=== PATIENT | male | born 1975 | race Caucasian/White ===

== ENCOUNTER 2017-03-03 17:09 | Emergency (ER) | payer BC ==
[~2017-03-03] VITALS: Ht 185.4 cm; Wt 111.1 kg
[2017-03-03] MEDS ORDERED: IV NORMAL SALINE 1000ML BAG 1,000 ML IV SCH (17:35)
[2017-03-03] MEDS ORDERED: FAMOTIDINE 20 MG/2 ML VIAL IVP ONE (17:45)
[2017-03-03] MEDS ORDERED: fentaNYL PF VIAL 100 MCG/2 ML VIAL IV PRN (17:45)
[2017-03-03] MEDS ORDERED: 0.9 % SODIUM CHLORIDE 10 ML DISP.SYRIN. IV PRN (17:45)
[2017-03-03] MEDS ORDERED: ONDANSETRON PF 4 MG/2 ML VIAL. IV ONE (17:45)
--- NOTE | 2017-03-03 17:56 | PHYS DOC ---
Past Medical History Past Medical History: No Pertinent History Past Surgical History: Tonsillectomy, Other Additional Past Surgical Histo: right hand fracture repair Alcohol Use: Heavy Additional Information: pt reports sometimes he drinks once per week, sometimes he drinks 2-3 times per week Drug Use: None Adult General Chief Complaint Chief Complaint: NAUSEA/VOMITING/DIARRHA HPI HPI This is is a pleasant otherwise healthy 41-year-old male who on weekends to consume anywhere from 10-12 alcoholic beverages. Yesterday he did the same today he woke up with diffuse crampy abdominal pain primarily in the epigastric region with no radiation to the back described as crampy in nature with waves a cause nausea vomiting diarrhea with 3 episodes of nausea and vomiting to count. He denies any blood in his vomit or stool denies any fevers but has had some active chills. He denies any travel outside the country, recent antibiotics, recent sick contacts, consumption of raw foods handling a poultry or reptiles. He denies any prior history of alcoholism alcohol related injuries alcohol- related complications of pancreatitis. He also denies any family history of alcoholism Review of Systems Review of Systems Constitutional: This patient is complained of chills without fevers. Eyes: Denies change in visual acuity, redness, or eye pain [] HENT: Denies nasal congestion or sore throat [] Respiratory: Denies cough or shortness of breath [] Cardiovascular: No additional information not addressed in HPI [] GI: He has had abdominal pain with profuse nausea and vomiting nonbilious nonbloody with nonbloody nonmucoid diarrhea. : Denies dysuria or hematuria [] Musculoskeletal: Denies back pain or joint pain [] Integument: Denies rash or skin lesions [] Neurologic: Denies headache, focal weakness or sensory changes [] Endocrine: Denies polyuria or polydipsia [] Current Medications Current Medications Current Medications Medications (Trade) Dose Ordered Sig/Faviola Start Time Stop Time Status Last Admin Dose Admin Famotidine (Pepcid) 20 mg 1X ONCE 03/03/17 17:45 03/03/17 17:46 DC 03/03/17 17:55 20 MG Fentanyl Citrate (Fentanyl 2ml Vial) 50 mcg PRN Q15MIN PRN 03/03/17 17:45 03/04/17 17:44 03/03/17 17:56 50 MCG Iohexol (Omnipaque 300 Mg/ml) 75 ml 1X ONCE 03/03/17 18:30 03/03/17 18:31 DC Ondansetron HCl (Zofran) 4 mg 1X ONCE 03/03/17 17:45 03/03/17 17:46 DC 03/03/17 17:55 4 MG Sodium Chloride (Normal Saline Flush) 10 ml QSHIFT PRN 03/03/17 17:45 Allergies Allergies Allergies Coded Allergies Type Severity Reaction Last Updated Verified No Known Drug Allergies 03/03/17 No Physical Exam Physical Exam Vital signs noted with hypertension without tachycardia and tachypnea or fever. Constitutional: Well developed, well nourished, a schnapps and comfortable HENT: Normocephalic, atraumatic, dry mucous membranes exudates or tonsillar hypertrophy Eyes: PERRLA, EOMI, conjunctiva normal, no discharge. [] Neck: Normal range of motion, no tenderness, supple, no stridor. [] Cardiovascular:Heart rate regular rhythm, no murmur [] Lungs & Thorax: Bilateral breath sounds clear to auscultation [] Abdomen: Patient has hyperactive bowel sounds with diffuse tenderness primarily mostly in his epigastrium without guarding rebound or organomegaly. Patient has no Scott Giordano sign Skin: Warm, dry, no erythema, no rash. [] Back: No tenderness, no CVA tenderness. [] Extremities: No tenderness, no cyanosis, no clubbing, ROM intact, no edema. [] Neurologic: Alert and oriented X 3, normal motor function, normal sensory function, no focal deficits noted. [] Psychologic: Affect normal, judgement normal, mood normal. [] Current Patient Data Vital Signs Vital Signs Date Time Temp Pulse Resp B/P (MAP) Pulse Ox O2 Delivery O2 Flow Rate FiO2 03/03/17 17:56 18 96 Room Air 03/03/17 17:25 98.5 72 166/87 (113) 98.5 Lab Values Laboratory Tests Test 03/03/17 17:47 03/03/17 18:39 White Blood Count 21.0 x10^3/uL (4.0-11.0) H Red Blood Count 5.51 x10^6/uL (4.30-5.70) Hemoglobin 15.4 g/dL (13.0-17.5) Hematocrit 47.0 % (39.0-53.0) Mean Corpuscular Volume 85 fL (79-100) Mean Corpuscular Hemoglobin 28 pg (25-35) Mean Corpuscular Hemoglobin Concent 33 g/dL (31-37) Red Cell Distribution Width 14.4 % (11.5-14.5) Platelet Count 247 x10^3/uL (140-400) Neutrophils (%) (Auto) 89 % (31-73) H Lymphocytes (%) (Auto) 6 % (24-48) L Monocytes (%) (Auto) 5 % (0-9) Eosinophils (%) (Auto) 0 % (0-3) Basophils (%) (Auto) 0 % (0-3) Neutrophils # (Auto) 18.6 x10^3uL (1.8-7.7) H Lymphocytes # (Auto) 1.3 x10^3/uL (1.0-4.8) Monocytes # (Auto) 1.1 x10^3/uL (0.0-1.1) Eosinophils # (Auto) 0.0 x10^3/uL (0.0-0.7) Basophils # (Auto) 0.0 x10^3/uL (0.0-0.2) Platelet Estimate Pending Sodium Level 142 mmol/L (136-145) Potassium Level 3.8 mmol/L (3.5-5.1) Chloride Level 105 mmol/L (98-107) Carbon Dioxide Level 26 mmol/L (21-32) Anion Gap 11 (6-14) Blood Urea Nitrogen 19 mg/dL (8-26) Creatinine 1.3 mg/dL (0.7-1.3) Estimated GFR (Cockcroft-Gault) 61.5 BUN/Creatinine Ratio 15 (6-20) Glucose Level 142 mg/dL (70-99) H Calcium Level 9.1 mg/dL (8.5-10.1) Magnesium Level 1.7 mg/dL (1.8-2.4) L Total Bilirubin 0.7 mg/dL (0.2-1.0) Aspartate Amino Transferase (AST) 24 U/L (15-37) Alanine Aminotransferase (ALT) 33 U/L (16-63) Alkaline Phosphatase 73 U/L (46-116) Total Protein 8.3 g/dL (6.4-8.2) H Albumin 4.3 g/dL (3.4-5.0) Albumin/Globulin Ratio 1.1 (1.0-1.7) Lipase 157 U/L (73-393) Ethyl Alcohol Level < 10 mg/dL (0-10) Urine Collection Type Unknown Urine Color Yellow Urine Clarity Clear Urine pH 6.0 Urine Specific [place] >=1.030 Urine Protein 100 mg/dL (NEG-TRACE) Urine Glucose (UA) Negative mg/dL (NEG) Urine Ketones (Stick) 15 mg/dL (NEG) Urine Blood Negative (NEG) Urine Nitrite Negative (NEG) Urine Bilirubin Negative (NEG) Urine Urobilinogen Dipstick 0.2 mg/dL (0.2 mg/dL) Urine Leukocyte Esterase Negative (NEG) Urine RBC 0 /HPF (0-2) Urine WBC 1-4 /HPF (0-4) Urine Squamous Epithelial Cells Occ /LPF Urine Bacteria Few /HPF (0-FEW) Urine Mucus Mod /LPF Laboratory Tests 03/03/17 17:47 Laboratory Tests 03/03/17 17:47 EKG EKG [] Radiology/Procedures Radiology/Procedures [] Course & Med Decision Making Course & Med Decision Making Pertinent Labs and Imaging studies reviewed. (See chart for details) Patient with excessive consumption of alcohol with likely dehydration causing nausea vomiting diarrhea associated with alcohol consumption. Will rule out presence of dehydration, kidney injury, alcohol-related pancreatitis or cholelithiasis. History reevaluated at approximately 1845 with marked improvement in his nausea ER. It was noted that his white blood cell count was 21,000 with left shift likely associated with the acute vomiting episodes he's been experiencing. This may represent an acute viral versus bacterial infection. Patient's lites are within normal limits although physically dehydrated on exam patient now looks markedly improved. His vital signs stabilized patient is waiting on CT of the abdomen and pelvis at this time. CT abdomen and pelvis still pending at 1925 patient still has not been taken to his study. His white blood cell count I believe this is likely associated with the acute nausea vomiting event and not a serious bacterial infection but given symptoms localizing pain I still need to ensure that appendicitis is not presenting at this time. [] Patient is pain-free at this time he has declined CT abdomen and pelvis. Patient has no pain in the right lower quadrant at this time we talked about missing appendicitis patient is okay with risk. He will follow-up with his primary care doctor next 12-24 hours repeat evaluation continues. At this point impression abdominal pain nausea vomiting diarrhea likely from alcohol consumption. Patient is a mild leukocytosis likely secondary to stress reaction or pain. His differential diagnosis included appendicitis, small bowel obstruction, diverticulitis, diverticulosis, nausea vomiting diarrhea secondary to viral versus bacterial sources. UTI, pink or tenderness, cholecystitis, cholelithiasis, peptic ulcer disease, erosive gastritis, alcoholic distress,. Disposition follow-up with PCP 12 to 24 hours repeat evaluation for nausea vomiting diarrhea. Dragon Disclaimer Dragon Disclaimer This electronic medical record was generated, in whole or in part, using a voice recognition dictation system. Departure Departure Scripts Dicyclomine Hcl (BENTYL) 10 Mg Capsule 1 CAP PO TID, #30 CAP 1 Refill Prov: CASI DOS SANTOS MD 03/03/17 Diphenoxylate Hcl/Atropine (LOMOTIL TABLET) 1 Each Tablet 1 TAB PO QID, #20 TAB Prov: CASI DOS SANTOS MD 03/03/17 Ondansetron (ZOFRAN ODT) 4 Mg Tab.rapdis 4 MG PO BID Y for NAUSEA/VOMITING for 7 Days, #14 TAB Prov: CASI DOS SANTOS MD 03/03/17 CASI DOS SANTOS MD March 03, 2017 17:56
[2017-03-03 18:00] LABS: BASO % 0 % (0-3); EOS % 0 % (0-3); HEMOGLOBIN 15.4 g/dL (13.0-17.5); LYMPH # 1.3 x10^3/uL (1.0-4.8); LYMPH % 6 % (24-48); MEAN CORPUSCULAR HEMOGLOBIN 28 pg (25-35); MEAN CORPUSCULAR HGB CONC 33 g/dL (31-37); MEAN CORPUSCULAR VOLUME 85 fL (79-100); MONO % 5 % (0-9); NEUT % 89 % (31-73); PLATELET COUNT 247 x10^3/uL (140-400); RED BLOOD COUNT 5.51 x10^6/uL (4.30-5.70); RED CELL DISTRIBUTION WIDTH 14.4 % (11.5-14.5)
[2017-03-03 18:18] LABS: CALCIUM 9.1 mg/dL (8.5-10.1); CREATININE 1.3 mg/dL (0.7-1.3); GFR 61.5; POTASSIUM 3.8 mmol/L (3.5-5.1)
[2017-03-03 18:25] LABS: ALBUMIN 4.3 g/dL (3.4-5.0); ALBUMIN/GLOBULIN RATIO 1.1 (1.0-1.7); MAGNESIUM 1.7 mg/dL (1.8-2.4); TOTAL BILIRUBIN 0.7 mg/dL (0.2-1.0); TOTAL PROTEIN 8.3 g/dL (6.4-8.2)
[2017-03-03] MEDS ORDERED: IOHEXOL 300 MG/ML 75 ML VIAL IV ONE (18:30)
[2017-03-03 19:06] LABS: BILIRUBIN,URINE NEGATIVE (NEG); GLUCOSE,URINE NEGATIVE (NEG); NITRITE,URINE NEGATIVE (NEG); PROTEIN,URINE 100 mg/dL (NEG-TRACE); UROBILINOGEN,URINE 0.2 mg/dL (0.2 mg/dL)
[2017-03-03 19:20] VITALS: BP 123/74
[2017-03-03 19:31] LABS: BACTERIA,URINE FEW /HPF (0-FEW); RBC,URINE 0 /HPF (0-2); SQUAMOUS EPITHELIAL CELL,UR OCC /LPF
[2017-03-03] MEDS ORDERED: DICY10CA53 PO (19:51)
[2017-03-03] MEDS ORDERED: ONDA4TAB10 PO (19:51)
[2017-03-03] MEDS ORDERED: DIPH1TAB PO (19:51)
[2017-03-03 23:30] LABS: PLT ESTIMATE ADEQUATE (ADEQUATE)
== END 2017-03-03 20:12 | disposition home or self-care (01) ==
LOC: ER 18:11
DX: R10.13 Epigastric pain (principal); R11.2 Nausea with vomiting, unspecified; R19.7 Diarrhea, unspecified; D72.829 Elevated white blood cell count, unspecified; F10.10 Alcohol abuse, uncomplicated
CPT/HCPCS: 36415; 80053; 80320; 81001; 83690; 83735; 85007; 85027; 96361; 96374; 96375; 99284; J2405; J3010; J7030; S0028; G0480